=== PATIENT | female | born 1965 | race Caucasian/White ===

== ENCOUNTER 2017-06-20 08:48 | Outpatient (CLI) | payer OTHER ==
--- NOTE | 2017-06-20 11:57 | MMO ---
BILATERAL SCREENING MAMMOGRAMS: Date: 06/20/17 Comparison made to an outside exam dated 03/10/14. This patient's mammogram was interpreted with the assistance of computer-aided detection. FINDINGS: Both breast show fatty replacement. No mass or distortion. No suspicious calcification. No significan t interval change. Recommend one year follow-up. IMPRESSION: BIRADS 1: Negative POS: [facility]
== END 2017-06-20 08:49 | disposition home or self-care (01) ==
LOC: SCSMAMMO 08:48
PROVIDERS: ATTEND Family Medicine
DX: Z12.31 Encounter for screening mammogram for malignant neoplasm of breast (principal)
CPT/HCPCS: 77067